=== PATIENT | male | born 1990 | race Caucasian/White ===

== ENCOUNTER 2020-06-18 14:45 | Emergency (ER) | payer OTHER ==
[~2020-06-18 14:45] MED LIST: KEPPRA500 MG PO; NORCO 5-325 TA1 EACH PO
[2020-06-18 15:38] LABS: HEMOGLOBIN 16.2 gm/dl (14.0-17.5); RED BLOOD COUNT 4.85 M/UL (4.20-5.50); WHITE BLOOD COUNT 12.5 K/UL (4.5-11.0)
[2020-06-18 15:54] LABS: BUN/CREATININE RATIO 15 (0-10)
[2020-06-18] MEDS ORDERED: HYDROCODON-ACE1 EAC2 PO (17:57)
[2020-06-18] MEDS ORDERED: KEPPRA500 MG PO (17:57)
== END 2020-06-18 18:15 | disposition home or self-care (01) ==
LOC: ER1 14:45
PROVIDERS: Preventive Medicine Occupational Medicine
DX: G40.909 Epilepsy, unspecified, not intractable, without status epilepticus (principal); S43.015A Anterior dislocation of left humerus, initial encounter; S43.035A Inferior dislocation of left humerus, initial encounter; F17.210 Nicotine dependence, cigarettes, uncomplicated; X58.XXXA Exposure to other specified factors, initial encounter
CPT/HCPCS: 23650; 73030; 80048; 85025; 93005; 96365; 96375; 99152; 99284; J1885; J1953; J2704; J7030

== ENCOUNTER 2021-07-06 18:56 | Emergency (ER) | payer OTHER ==
[~2021-07-06 18:56] MED LIST changes: +HYDROCODON-ACE1 EAC2 PO
[2021-07-06] MEDS ORDERED: CYCLOBENZAPRINE10 MG PO (23:27)
[2021-07-06] MEDS ORDERED: IBUPROFEN800 MG PO (23:27)
== END 2021-07-06 23:50 | disposition home or self-care (01) ==
LOC: ER1 18:56
DX: M54.2 Cervicalgia (principal); M25.512 Pain in left shoulder; G89.29 Other chronic pain; F17.290 Nicotine dependence, other tobacco product, uncomplicated
CPT/HCPCS: 72125; 73030; 96372; 99284; J1885

== ENCOUNTER → 2021-12-01 | Outpatient (CLI) | payer OTHER ==
[~2021-12-01] MED LIST changes: +CYCLOBENZAPRINE10 MG PO; +IBUPROFEN800 MG PO
== END ==
LOC: KOH-I 16:05
DX: M54.32 Sciatica, left side (principal)
CPT/HCPCS: 72100; 73502